=== PATIENT | female | born 1980 | race Two or more races ===

== ENCOUNTER 2020-06-29 14:15 | Inpatient (IN) | payer OTHER ==
[~2020-06-29] VITALS: Ht 167.6 cm; Wt 91.6 kg
[2020-07-05] MEDS ORDERED: PRENATAL TABLE1 EAC3 PO (09:44)
[2020-07-05] MEDS ORDERED: IRON325 MG PO (09:45)
[2020-07-05] MEDS ORDERED: FAMOTIDINE20 MG (13:26)
[2020-07-05] MEDS ORDERED: LANSOPRAZOLE30 MG (13:26)
[2020-07-05] MEDS ORDERED: FOLIC ACID1 MG (13:26)
== END 2020-07-07 14:31 | disposition home or self-care (01) | DRG 798 ==
LOC: LDR 07-05 08:36 → SURG-SUITE 07-05 08:36 → OB/GYN 07-06 14:15 → SURG-SUITE 07-07 14:31
PROVIDERS: ADMIT Specialist; ATTEND Specialist
PROC: 10E0XZZ Delivery of Products of Conception, External Approach (ICD-10-PCS; principal; 2020-07-05)
PROC: 10907ZC Drainage of Amniotic Fluid, Therapeutic from Products of Conception, Via Natural or Artificial Opening (ICD-10-PCS; 2020-07-05)
PROC: 4A1HXFZ Monitoring of Products of Conception, Cardiac Rhythm, External Approach (ICD-10-PCS; 2020-07-05)
PROC: 0UB70ZZ Excision of Bilateral Fallopian Tubes, Open Approach (ICD-10-PCS; 2020-07-06)
DX: O70.0 First degree perineal laceration during delivery (principal); Z37.0 Single live birth; Z3A.39 39 weeks gestation of pregnancy; Z20.822 Contact with and (suspected) exposure to COVID-19; Z30.2 Encounter for sterilization

== ENCOUNTER 2020-07-03 10:45 | Outpatient (CLI) | payer OTHER | END 2020-07-03 13:18 | disposition home or self-care (01) | LOC: NST 10:45 | PROVIDERS: ATTEND Specialist | DX: Z34.83 Encounter for supervision of other normal pregnancy, third trimester (principal) ==